=== PATIENT | male | born 1980 | race Hispanic/Latino ===

== ENCOUNTER → 2016-09-25 | Outpatient (CLI) | payer MEDICARE ==
[~2016-09-25] MED LIST: ACC15GT EXT; ASPI1TAB PO; CEPH500C PO; CLON1TAB36 PO; DIVA500T PO; DIVA500T15 PO; DIVA500T7 PO; DVL250TEC; LEVE500T PO; LEVE750T16 PO; LORA1TAB; METH4TAB PO; VALA100033 PO
--- NOTE | 2016-09-25 16:15 | Diagnostic Imaging Report ---
PROCEDURE: MRI left joint lower extremity without contrast. TECHNIQUE: Multiplanar, multisequence non contrast-enhanced MRI of the left lower extremity was accomplished. INDICATION: Left knee pain and swelling. FINDINGS: There is a small suprapatellar effusion. There is no popliteal cyst. There is no bone contusion or other significant marrow signal abnormality. The extensor mechanism is intact. The ACL and the PCL appear intact. The posterior horn of the medial meniscus demonstrates increased signal within the substance of the meniscus extending to the posterior root extending close to the undersurface of the meniscus with no definitive interruption of the surface to confirm a tear. This may relate to a degenerative signal with no definitive tear. Similar signal in the posterior horn of the lateral meniscus is seen with no definite tear. The MCL and the lateral collateral ligament complex appear intact. The articular cartilage appears preserved. IMPRESSION: Increased signal within the posterior horn of the medial and lateral menisci with no definitive extension into the surface of the meniscus is suggestive of degeneration with no definitive tear. Dictated by: Dictated on workstation # [id number]
== END ==
LOC: RAD 15:13
PROVIDERS: ATTEND Nurse Practitioner Community Health
DX: M25.562 Pain in left knee (principal); R93.7 Abnormal findings on diagnostic imaging of other parts of musculoskeletal system
CPT/HCPCS: 73721

== ENCOUNTER 2016-10-10 08:53 | Outpatient (CLI) | payer MEDICARE ==
[~2016-10-10] VITALS: Ht 180.3 cm; Wt 98.9 kg
[2016-10-10] MEDS ORDERED: DIVA500T PO (09:05)
[2016-10-10 09:08] VITALS: BP 127/91
== END 2016-10-10 09:34 | disposition home or self-care (01) ==
LOC: PREOP 08:53
PROVIDERS: ATTEND Orthopaedic Surgery
DX: Z01.818 Encounter for other preprocedural examination (principal); Z11.2 Encounter for screening for other bacterial diseases; M23.8X2 Other internal derangements of left knee
CPT/HCPCS: 87081

== ENCOUNTER 2016-10-16 10:15 | Day surgery (SDC) | payer MEDICARE ==
--- NOTE | 2016-10-08 12:26 | HISTORY AND PHYSICAL ---
DATE OF SERVICE: 10/16/2016 HISTORY OF PRESENT ILLNESS: The patient is a 36-year-old gentleman with complaints of left knee pain. He reports swelling, popping, catching and giving-way in the left knee. He reports that this has been ongoing and progressive. He reports activity limitation because of the knee. He denies any specific injuries. He underwent an MRI which revealed a posterior horn medial meniscal tear. He tried rest, activity modifications and bracing without and due to continued functional impairment, the patient has elected to proceed with surgical intervention. REVIEW OF SYSTEMS: No chest pain, no shortness of breath, no dysuria. PAST MEDICAL HISTORY: Sleep apnea, seizures. PAST SURGICAL HISTORY: Herniorrhaphy, appendectomy. FAMILY HISTORY: Diabetes, ischemic heart disease, bipolar. PRIMARY CARE PROVIDER: [facility]. MEDICATIONS: Depakote, Excedrin. ALLERGIES: KEPPRA. SOCIAL HISTORY: The patient is a regular tobacco user. Denies alcohol use. PHYSICAL EXAMINATION: GENERAL: The patient is well-developed, well-nourished, in no acute distress. HEENT: Normocephalic, atraumatic. Pupils equal, round and reactive to light. Oropharynx is clear. NECK: Supple. No lymphadenopathy. LUNGS: Clear to auscultation bilaterally. HEART: Regular rate and rhythm. ABDOMEN: Soft, nontender, nondistended. EXTREMITIES: The left knee demonstrates marked tenderness along his medial joint line with a positive Ankita and pain elicited with Ankita. Negative Archie, negative anterior and posterior drawer. No varus or valgus laxity and pivot shift. Range of motion is 0/0/140. Moderate effusion is noted. 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 PLAN: Left knee arthroscopy, partial medial meniscectomy and chondroplasty. The risks, benefits, options and ramifications have been covered. Risks discussed at length with the patient. He understand and wishes to proceed. Job ID: [id number] DocumentID: [id number] Dictated Date: 10/08/2016 11:10:10 Rapier Insertion Loom Fixer Date: 10/08/2016 12:25:57 Dictated By: ALONZO DAUGHERTY MD
[~2016-10-16] VITALS: Ht 180.3 cm; Wt 98.9 kg
[2016-10-16 10:30] VITALS: BP 133/88
[2016-10-16] MEDS ORDERED: BUPIVACAINE 0.25% 30 ML (SENSORCAINE) VIAL ONE (10:34)
[2016-10-16] MEDS ORDERED: morphine PF (DURAMORPH) 10 MG/10 ML AMP ONE (10:34)
[2016-10-16] MEDS ORDERED: proPOfol 200 MG/20 ML (DIPRIVAN) VIAL IV ONE (10:49)
[2016-10-16] MEDS ORDERED: fentaNYL INJECTION 100 MCG/2 ML AMP ONE ×2 (10:49→11:33)
[2016-10-16] MEDS ORDERED: NS (IVPB) 50 ML ONE (10:49)
[2016-10-16] MEDS ORDERED: MIDAZOLAM 2 MG/2 ML (VERSED) VIAL ONE (10:49)
[2016-10-16] MEDS ORDERED: ceFAZolin 1,000 MG (ANCEF) VIAL ONE (10:49)
--- NOTE | 2016-10-16 11:15 | Progress Note-Pre Operative ---
Pre-Operative Progress Note H&P Reviewed The H&P was reviewed, patient examined and no changes noted. Date H&P Reviewed: October 16, 2016 Time H&P Reviewed: 11:14 Pre-Operative Diagnosis: left knee medial meniscal tear and chondromalacia ALONZO DAUGHERTY MD October 16, 2016 11:15
--- NOTE | 2016-10-16 11:16 | Progress Note-Post Operative ---
Post-Operative Progess Note Surgeon (s)/Museum Specialist (s) Surgeon ALONZO DAUGHERTY MD Museum Specialist: Keven Devine Pre-Operative Diagnosis left knee medial meniscal tear and chondromalacia Post-Operative Diagnosis left knee medial meniscal tear, chondral defect of the trochlea and chondromalacia of the medial femoral condyle Procedure & Operative Findings Date of Procedure 10/16/16 Procedure Performed/Findings left knee arthroscopic partial medial meniscectomy, microfracture of the trochlea and chondroplasty of the medial femoral condyle Anesthesia Type GETA Estimated Blood Loss Estimated blood loss (mL): minimal Specimens/Packing Specimens Removed none Packing: none ALONZO DAUGHERTY MD October 16, 2016 11:16
[2016-10-16] MEDS: LACTATED RINGERS 1,000 ML IV PRN ×2 (11:17→11:57)
[2016-10-16] MEDS ORDERED: ceFAZolin 1 GM/NS 50 ML IVPB IV ONE ×2 (11:30)
[2016-10-16] MEDS ORDERED: SEVOFLURANE (ULTANE) 15 ML INHAL SOLN ONE (11:40)
[2016-10-16] MEDS ORDERED: LACTATED RINGERS 2,000 ML IV ONE (11:40)
[2016-10-16] MEDS ORDERED: HYDROcodone/APAP 7.5 MG/325 MG (LORTAB, LORCET PLUS) TABLET PO PRN (11:45)
[2016-10-16] MEDS ORDERED: KETOROLAC 30 MG/ML VIAL ONE (11:58)
[2016-10-16] MEDS ORDERED: morphine INJ 10 MG/ML 1ML (SYR OR VIAL) IVP PRN (12:15)
[2016-10-16] MEDS ORDERED: HYDROmorphone (DILAUDID) 2 MG/ML VIAL IVP PRN (12:15)
[2016-10-16] MEDS ORDERED: ONDANSETRON 4 MG/2 ML (SDV) Z0FRAN IVP PRN (12:15)
[2016-10-16 13:05] VITALS: BP 141/92
[2016-10-16 13:35] VITALS: BP 138/98
[2016-10-16 14:10] VITALS: BP 113/79
--- NOTE | 2016-10-16 14:34 | Physical Therapy Ortho Eval ---
PT Orthopedic Evaluation Type of Surgery Knee Scope left side, WBAT Prior Level of Function Current Living Status: Spouse Locomotion (Upon Admit): Independent Established Durable Medical Eq: Crutches Subjective Subjective Patient in bed pre tx, agrees to PT, has 4-5/10 pain. Entry Into Home: Stairs With Railing Steps Into Home: 4 Objective Objective left knee flexion 90 degrees, extension +3 degrees, patient has intact light touch sensation in left leg. Motor Control Motor Control: Motor Control WNL ROM ROM: WFL, except focal deficit Strength NT Transfer Transfers (B, C, W/C) (FIM): 5 Gait Gait Assistive Device: Crutches Weight Bearing Restriction: Weight Bearing/Tolerated Location Restriction: L LE Gait (FIM): 4 Distance: 200' Gait Level of Assist: 4 (CGA) Summary/Comments Patient went up and down 1 step using crutches with CGA. Treatment Rendered Treatment: Therapeutic Exercises, Gait Train, Step Train Exercise Instruction: Quad Sets, Heel Slides, Ankle Pumps Assessment/Goals Goal Time Frame: 1 Visit Plan Treatment Plan: Discharge PT/Family Agrees to Plan: Yes Time Time In: 1405 Time Out: 1425 Total Billed Treatment Time: 20 Billed Treatment Time 1 visit EVL 20' Yes PT/OT Therapy GCodes Therapy Functional Limitation: Physical Therapy Test(s)/Tool used to determine: Level of Assistance Scale Functional Limitation-Current Charge Code: MOBCUR Modifier: CI Functional Limitation-Goal Charge Code: MOBGOAL Modifier: CI Functional Limitation-D/C Charge Codes: MOBDC Modifier: CI HECTOR ALEXIS PT October 16, 2016 14:34
[2016-10-16] MEDS ORDERED: HYDR-3730 PO (14:42)
[2016-10-16 14:53] VITALS: BP 113/79
--- NOTE | 2016-10-17 02:40 | OPERATIVE REPORT ---
DATE OF SERVICE: 10/16/2016 PREOPERATIVE DIAGNOSES: 1. Left knee medial meniscal tear. 2. Left knee chondromalacia of the medial femoral condyle. POSTOPERATIVE DIAGNOSES: 1. Left knee medial meniscal tear. 2. Left knee chondromalacia of the medial femoral condyle. 3. Left knee chondral defect of the trochlea. PROCEDURES PERFORMED: 1. Left knee arthroscopic partial medial meniscectomy. 2. Left knee arthroscopic microfracture of the trochlea. 3. Left knee arthroscopic chondroplasty of the medial femoral condyle. SURGEON: Dr. Aleksander Quintanilla FIELD SALES REPRESENTATIVE: Keven Devine, who assisted throughout the procedure and closed the incisions. ANESTHESIA: General endotracheal by Jose Oseguera CRNA. TOURNIQUET TIME: Not applicable. ESTIMATED BLOOD LOSS: Minimal. DRAINS: None. COMPLICATIONS: None. POSTOPERATIVE PLAN: Routine arthroscopy protocol. The patient was transported to the recovery room awake and in stable condition. STATEMENT OF MEDICAL NECESSITY: The patient is a 36-year-old gentleman with the complaints of left knee pain, catching, locking and swelling. He had failed to respond to extensive conservative measures and due to functional impairment, the patient elected to proceed with surgical intervention. Examination under anesthesia revealed range of motion 0/0/140 with negative Archie, negative anterior and posterior drawer, no varus or valgus laxity, negative pivot shift. Arthroscopic findings of the patella demonstrated no gross chondral abnormalities. The trochlea demonstrated grade 4 chondral flap in a 5 x 8 area on the superior aspect of the groove. The medial and lateral gutters were clear. The lateral compartment demonstrated no significant meniscal or chondral pathology. The ACL and PCL were intact. The medial compartment demonstrated grade 2 chondral flap with central portion of the femoral condyle in a 15 x 15 area. The posterior horn of the medial meniscus demonstrated horizontal cleavage tear involving proximally one-third of the posterior horn. DESCRIPTION OF PROCEDURE: After risks and benefits of procedure were discussed and questions were answered, informed consent was signed and placed on the chart. The operative site was confirmed in the preoperative holding area and initialed by the surgeon. The patient was then transported to the operating room, and after adequate levels of general endotracheal anesthetic were obtained, a timeout was called confirming the operative site. The left lower extremity was then prepped and draped in usual sterile fashion. The knee was injected with 60 mL of fluid, and a standard superior medial inflow cannula was placed. An inferolateral portal was placed for the arthroscope under direct visualization. An inferomedial portal was created. The menisci and cruciates were carefully probed with the above findings noted. Unstable chondral flaps on the medial femoral condyle were debrided with the shaver back to a stable edge, and the posterior horn of the medial meniscus was debrided with a bitter and shaved removing approximately one-third of the posterior horn. This was carefully probed with no further tearing or instability noted. The scope was then redirected into the patellofemoral joint space chondral flap was debrided back to stable edges. There was a well-shouldered lesion, and a microfracture was performed with a curved awl in 3 mm increments with good blood return noted. The knee was copiously irrigated. The portal sites were closed with 3-0 nylon in a simple interrupted fashion. The knee was injected with Duramorph. The portal sites were infiltrated with plain Marcaine. A soft dressing was applied, and the patient was transported to the recovery room awake and in stable condition. Job ID: [id number] DocumentID: [id number] Dictated Date: 10/16/2016 12:02:16 Bearingizer Date: 10/17/2016 01:42:09 Dictated By: ALEKSANDER QUINTANILLA MD
== END 2016-10-16 14:53 | disposition home or self-care (01) ==
LOC: SDC 10:15
PROVIDERS: ATTEND Orthopaedic Surgery
DX: M23.8X2 Other internal derangements of left knee (principal); M94.262 Chondromalacia, left knee; G40.909 Epilepsy, unspecified, not intractable, without status epilepticus; F17.210 Nicotine dependence, cigarettes, uncomplicated; Z79.899 Other long term (current) drug therapy